=== PATIENT | male | born 1965 | race Caucasian/White ===

== ENCOUNTER 2017-01-21 11:04 | Emergency (ER) | payer BC ==
[2017-01-21 11:10] VITALS: BP 159/92; BMI 31.1
--- NOTE | 2017-01-21 11:45 | DR.ABDMALE ---
HPI - Time seen Time seen: 11:40 - PCP Primary Care Physician: CORRIE - HPI comment HPI Comment: HISTORY BELOW. - Complaint Chief Complaint Doctors Comments: LOWER ABDOMINAL AND LOWER BACK PAIN WITH NAUSEA. EVALUATED IN [facility] BUT NOT IMPROVING. GETTING WORSE. Chief Complaint:: PATIENT HAS BEEN HAVING LEFT LOWER ABD PAIN SINCE 01/06/17. WAS SEEN IN [place] [facility]. PATIENT WAS BROUGHT HER BY . - Reviewed Nurses Notes Review: Yes - Mode of arrival Mode of Arrival: Wheelchair - Timing Onset of Chief Complaint: 01/06/17 Came on: Suddenly - Duration Duration: Constant Duration: Days - Location Location: RLQ, LLQ, Suprapubic - Severity Severity: Moderate - Quality Quality: Sharp - Context Onset: Suddenly History of: None - Modifying factors Worsening Factors: Nothing Improving Factors: Nothing - Associated signs and symptoms Associated Signs and Symptoms: Nausea PMH - PMH Past Medical History: No Past Surgical History: No - Family History History of Family Medical Conditions: No - Social History Does patient currently use any type of tobacco product: Yes Have you used tobacco products in the last 12 months: Yes Type of Tobacco Use: Smokeless How many years tobacco product used: 20 Does any household member use tobacco: No Alcohol Use: DAILY Do you use any recreational Drugs:: No Lives With: Family Lives Where: Home - infectious screening In the last 2 months have you had wt loss of >10#?: NO Have you had fever, night sweats or hemotysis?: No Have you traveled outside the country in the last 6 months?: No Isolation: Standard ROS - Review of Systems Constitutional: No Symptoms Reported Eyes: No Symptoms Reported ENTM: No Symptoms Reported Respiratoy: No Symptoms Reported Cardiovascular: No Symptoms Reported Gastrointestinal/Abdominal: Abdominal Pain, Nausea Genitourinary: No Symptoms Reported. negative: Dysuria, Frequency, Hematuria Neurological: No Symptoms Reported Musculoskeletal: Back Pain (LOWER BACK) Integumentary: No Symptoms Reported Hematologic/Lymphatic: No Symptoms Reported Endocrine: No Symptoms Reported All Other Systems: Reviewed and Negative PE - Vital Signs Vital Signs: Temp Pulse Resp BP Pulse Ox 01/21/17 11:07 98.6 F 69 16 159/92 100 - General Limitations: No Limitations General Appearance: Alert - Head Head Exam: Normal Inspection - Eyes Eye exam: Normal Appearance - ENT ENT Exam: Normal External Ear Exam - Neck Neck Exam: Normal Inspection - Chest Chest Inspection: Symmetric Chest Wall Rise - Respiratory Respiratory Exam: Normal Lung Sounds Bilat Respiratory Exam: Bilateral Clear to Auscultation - Cardiovascular Cardiovascular Exam: Regular Rate, Normal Rhythm, Normal Heart Sounds - Abdominal Exam Abdominal Exam: Normal Bowel Sounds, Soft, Tenderness Abdominal Tenderness: RLQ, LLQ, Suprapubic - Rectal Rectal Exam: Deferred - Back Back Exam: Normal Inspection - Extremeties Extremities Exam: Normal Inspection - Exam: Male: Deferred - Neurologic Neurological Exam: Alert, Oriented X3 - Psychiatric Psychiatric Exam: Normal Affect, Normal Mood - Skin Skin Exam: Normal Color MDM - Differential Diagnosis Differential Diagnosis: Cholcystitis, Cholelethiasis, Diverticular disease, Gastritus/PUD, Pancreatitis, Urinary tract infection, Urolithiasis Course - Treatment Treatment: SEE ORDERS. - Education/Counseling Education/Counseling: Patient, Family, Education Educated On: Treatment, Diagnosis, Needs for Follow Up ROR - Labs Reviewed Laboratory Results Reviewed?: Yes Result Diagrams: 01/21/17 11:50 01/21/17 11:50 Laboratory: WBC 7.8 X10^3/uL (3.6-10.0) 01/21/17 11:50 RBC 4.81 X10^6/uL (4.7-6.0) 01/21/17 11:50 Hgb 15.6 g/dL (13.5-18.0) 01/21/17 11:50 Hct 43.7 % (42.0-54.0) 01/21/17 11:50 MCV 90.8 fL (80.0-100.0) 01/21/17 11:50 MCH 32.5 pg (27.0-34.0) 01/21/17 11:50 MCHC 35.8 g/dL (33.0-35.0) H 01/21/17 11:50 RDW 13.0 % (11.6-16.5) 01/21/17 11:50 Plt Count 187 X10^3/uL (150.0-450.0) 01/21/17 11:50 MPV 8.1 fL (7.4-11.0) 01/21/17 11:50 Neut % 82.4 % (42.0-75.0) H 01/21/17 11:50 Lymph % 9.8 % (21.0-51.0) L 01/21/17 11:50 [place] % 5.0 % (0.0-13.0) 01/21/17 11:50 Eos % 1.5 % (0.9-2.9) 01/21/17 11:50 Baso % 1.3 % (0.2-1.0) H 01/21/17 11:50 Neut # 6.5 x10^3/uL (2.2-4.8) H 01/21/17 11:50 Lymph # 0.8 X10^3/uL (1.3-2.9) L 01/21/17 11:50 [place] # 0.4 x10^3/uL (0.3-0.8) 01/21/17 11:50 Eos # 0.1 x10^3/uL (0.0-0.2) 01/21/17 11:50 Baso # 0.1 X10^3/uL (0.0-0.1) 01/21/17 11:50 Absolute Nucleated RBC 0.0 /100WBC 01/21/17 11:50 Sodium 141 mmol/L (136-145) 01/21/17 11:50 Corrected Sodium TNP 01/21/17 11:50 Potassium 4.1 mmol/L (3.5-5.1) 01/21/17 11:50 Chloride 108 mmol/L (98-107) H 01/21/17 11:50 Carbon Dioxide 26.3 mmol/L (21-32) 01/21/17 11:50 BUN 10 mg/dL (7-18) 01/21/17 11:50 Creatinine 0.97 mg/dL (0.70-1.30) 01/21/17 11:50 Est GFR (MDRD) Af Amer > 60 (>60) 01/21/17 11:50 Est GFR (MDRD) Non-Af > 60 (>60) 01/21/17 11:50 Glucose 94 mg/dL (65-99) 01/21/17 11:50 Calcium 8.7 mg/dL (8.5-10.1) 01/21/17 11:50 Corrected Calcium TNP 01/21/17 11:50 Total Bilirubin 1.30 mg/dL (0.2-1.0) H 01/21/17 11:50 AST 43 Units/L (15-37) H 01/21/17 11:50 ALT 108 Units/L (12-78) H 01/21/17 11:50 Alkaline Phosphatase 77 Units/L (46-116) 01/21/17 11:50 Total Protein 6.9 g/dL (6.4-8.2) 01/21/17 11:50 Albumin 4.0 g/dL (3.4-5.0) 01/21/17 11:50 Globulin 2.9 g/dL (2.5-4.5) 01/21/17 11:50 Albumin/Globulin Ratio 1.4 Ratio (1.1-2.1) 01/21/17 11:50 Amylase 36 Units/L (25-115) 01/21/17 11:50 Lipase 171 Units/L (73-393) 01/21/17 11:50 Specimen Type Clean catch urine 01/21/17 12:19 Urine Color Dark yellow (YELLOW) 01/21/17 12:19 Urine Appearance Cloudy (CLEAR) 01/21/17 12:19 Urine pH 6.0 (5.0 - 8.0) 01/21/17 12:19 Ur Specific [place] 1.015 (1.000-1.030) 01/21/17 12:19 Urine Protein 2+ (NEGATIVE) 01/21/17 12:19 Urine Glucose (UA) Negative (NEGATIVE) 01/21/17 12:19 Urine Ketones Negative (NEGATIVE) 01/21/17 12:19 Urine Occult Blood 5+ (NEGATIVE) 01/21/17 12:19 Urine Nitrite Negative (NEGATIVE) 01/21/17 12:19 Urine Bilirubin Negative (NEGATIVE) 01/21/17 12:19 Urine Urobilinogen Normal (NORMAL) 01/21/17 12:19 Ur Leukocyte Esterase 1+ (NEGATIVE) 01/21/17 12:19 Urine RBC Tntc /HPF (NEGATIVE) 01/21/17 12:19 Urine WBC 0 - 2 /HPF (NEGATIVE) 01/21/17 12:19 Ur Squamous Epith Cells Rare /HPF (NEGATIVE) 01/21/17 12:19 Amorphous Sediment 1+ /HPF (NEGATIVE) 01/21/17 12:19 Urine Bacteria Negative /HPF (NEGATIVE) 01/21/17 12:19 Ur Culture Indicated? No/not indicated 01/21/17 12:19 H. pylori IgG Antibody Negative (NEGATIVE) 01/21/17 11:50 - XRAY XRAY Interpreted by: Radiologist XRAY Findings: REPORT DISCUSS WITH PATIENT AND FAMILY. - Diagnosis Discharge Problem: Left ureteral calculus Abdominal pain Qualifiers: Abdominal location: generalized Qualified Code(s): R10.84 - Generalized abdominal pain Cholelithiasis Qualifiers: Cholelithiasis location: gallbladder Cholecystitis presence: without cholecystitis Biliary obstruction: without biliary obstruction Qualified Code(s) : K80.20 - Calculus of gallbladder without cholecystitis without obstruction - Discharge Plan Disposition: HOME, SELF-CARE Condition: Stable Prescriptions: Hydrocodone/Acet Elixir [LORTAB ELIXIR 7.5-325 MG/15 ML *] 7.5 ml PO Q6H #15 ml Ketorolac Tromethamine [Toradol Tab] 10 mg PO Q8H PRN #20 tab PRN Reason: Pain Tamsulosin HCl [Flomax] 0.4 mg PO DAILY #10 cap - Follow ups/Referrals Follow ups/Referrals: NFD,None [Primary Care Provider] - 3 days - Instructions Instructions: Cholelithiasis, Kidney Stones, [id number], Abdominal Pain, Adult, [id number] Additional Instructions: RETURN TO ED IF WORSE. FOLLOW UP WITH UROLOGIST TUESDAY.
[2017-01-21 11:59] LABS: EOSINOPHILS # (AUTO) 0.1 x10^3/uL (0.0-0.2); HEMOGLOBIN 15.6 g/dL (13.5-18.0); LYMPHOCYTES # (AUTO) 0.8 X10^3/uL (1.3-2.9); MEAN CORPUSCULAR HGB CONC 35.8 g/dL (33.0-35.0); MONOCYTES # (AUTO) 0.4 x10^3/uL (0.3-0.8)
[2017-01-21 12:11] LABS: ALANINE AMINOTRANSFERASE 108 Units/L (12-78); ALKALINE PHOSPHATASE 77 Units/L (46-116); AMYLASE 36 Units/L (25-115); ASPARTATE AMINO TRANSFERASE 43 Units/L (15-37); BLOOD UREA NITROGEN 10 mg/dL (7-18); CALCIUM 8.7 mg/dL (8.5-10.1); CARBON DIOXIDE 26.3 mmol/L (21-32); CHLORIDE 108 mmol/L (98-107); CREATININE 0.97 mg/dL (0.70-1.30); LIPASE 171 Units/L (73-393); SODIUM 141 mmol/L (136-145); TOTAL PROTEIN 6.9 g/dL (6.4-8.2); eGFR BLACK RACES > 60 (>60); eGFR NON BLACK RACES > 60 (>60)
[2017-01-21 12:15] LABS: BASOPHILS # (AUTO) 0.1 X10^3/uL (0.0-0.1); BASOPHILS % (AUTO) 1.3 % (0.2-1.0); EOSINOPHILS % (AUTO) 1.5 % (0.9-2.9); HEMATOCRIT 43.7 % (42.0-54.0); LYMPHOCYTES % (AUTO) 9.8 % (21.0-51.0); MEAN CORPUSCULAR HEMOGLOBIN 32.5 pg (27.0-34.0); MEAN CORPUSCULAR VOLUME 90.8 fL (80.0-100.0); MEAN PLATELET VOLUME 8.1 fL (7.4-11.0); NEUTROPHILS # (AUTO) 6.5 x10^3/uL (2.2-4.8); NEUTROPHILS % (AUTO) 82.4 % (42.0-75.0); PLATELET COUNT 187 X10^3/uL (150.0-450.0); RED BLOOD COUNT 4.81 X10^6/uL (4.7-6.0); WHITE BLOOD COUNT 7.8 X10^3/uL (3.6-10.0)
--- NOTE | 2017-01-21 12:22 | CT ---
HISTORY: Abdominal pain, prior history of renal stone Study: CT abdomen and pelvis without contrast Comparison: None Technique: Multiple axial images of the abdomen and pelvis were obtained from the lung bases to the pubic symphy sis without the administration of IV contrast. Findings: Atelectasis is seen within the visualized lungs. The liver, spleen, pancreas, and adrenals are grossl y unremarkable in appearance given the limitations of this noncontrast exam. A right renal cyst is no jerrell. An approximate 3 mm stone is noted within the left kidney. An approximate 3 mm stone is also see n within the proximal left ureter resulting in moderate left-sided hydronephrosis and proximal left h ydroureter. Evaluation of the stomach, small bowel, and colon is limited without oral contrast. The a ppendix is partially air-filled and otherwise grossly unremarkable. Cholelithiasis is noted. The urin sina bladder is unremarkable. IMPRESSION: 1. 3 mm stone within the proximal left ureter resulting in moderate left-sided hydronephrosis and pro ximal left hydroureter. 2. Left renal stone as noted above. 3. Cholelithiasis which may be further evaluated with ultrasound as clinically indicated. Reported By:
[2017-01-21 12:39] LABS: BILIRUBIN,URINE NEGATIVE (NEGATIVE); BLOOD/HEMOGLOBIN,URINE 5+ (NEGATIVE); GLUCOSE, URINE NEGATIVE (NEGATIVE); KETONES,URINE NEGATIVE (NEGATIVE); LEUKOCYTE ESTERASE ,URINE 1+ (NEGATIVE); NITRITES,URINE NEGATIVE (NEGATIVE); PROTEIN,URINE 2+ (NEGATIVE); UROBILINOGEN,URINE NORMAL (NORMAL)
[2017-01-21 12:52] LABS: APPEARANCE,URINE CLOUDY (CLEAR); COLOR,URINE DARK YELLOW (YELLOW)
[2017-01-21 12:57] LABS: AMORPHOUS SEDIMENT,UR 1+ /HPF (NEGATIVE); BACTERIA,URINE NEGATIVE /HPF (NEGATIVE); RBC,URINE TNTC /HPF (NEGATIVE); SQUAMOUS EPITHELIAL CELL,UR RARE /HPF (NEGATIVE)
== END 2017-01-21 13:15 | disposition home or self-care (01) ==
LOC: ER 11:04
DX: N20.1 Calculus of ureter (principal); K80.20 Calculus of gallbladder without cholecystitis without obstruction; R10.84 Generalized abdominal pain
CPT/HCPCS: 36415; 74176; 80053; 81001; 82150; 83690; 85025; 86677; 99282; 99283

== ENCOUNTER 2022-05-25 15:13 | Inpatient (IN) ==
[2022-05-25] MEDS ORDERED: LOPRESSOR INJ 5 MG AMP IVP ONE (17:01)
--- NOTE | 2022-05-25 17:19 | EKG ---
Test Reason : NEW ONSET A-FIB Blood Pressure : */* mmHG Vent. Rate : 156 BPM Atrial Rate : * BPM P-R Int : * ms QRS Dur : 86 ms QT Int : 314 ms P-R-T Axes : * 22 -16 degrees QTc Int : 506 ms Atrial fibrillation with rapid ventricular response Abnormal ECG No previous ECGs available Confirmed by Oliver Nassar ([id number]) on 05/26/2022 10:55:19 AM Referred By: Confirmed By: Oliver Nassar
[2022-05-25 17:34] LABS: BASOPHILS % (AUTO) 0.5 % (0.2-1.0); EOSINOPHILS # (AUTO) 0.2 x10^3/uL (0.0-0.2); EOSINOPHILS % (AUTO) 2.3 % (0.9-2.9); HEMATOCRIT 45.8 % (42.0-54.0); HEMOGLOBIN 15.7 g/dL (13.5-18.0); LYMPHOCYTES # (AUTO) 1.1 X10^3/uL (1.3-2.9); MEAN CORPUSCULAR HEMOGLOBIN 32.7 pg (27.0-34.0); MEAN CORPUSCULAR HGB CONC 34.3 g/dL (33.0-35.0); MEAN CORPUSCULAR VOLUME 95.5 fL (80.0-100.0); MEAN PLATELET VOLUME 8.3 fL (7.4-11.0); MONOCYTES # (AUTO) 0.5 x10^3/uL (0.3-0.8); MONOCYTES % (AUTO) 7.4 % (0.0-13.0); NEUTROPHILS % (AUTO) 73.8 % (42.0-75.0); RED CELL DISTRIBUTION WIDTH 12.9 % (11.6-16.5); WHITE BLOOD COUNT 6.7 X10^3/uL (3.6-10.0)
[2022-05-25] MEDS: LOPRESSOR TAB 25 MG PO SCH ×2 (17:39→20:27)
[2022-05-25] MEDS: LANOXIN INJ IVP SCH ×2 (17:40→20:46)
[2022-05-25 17:48] LABS: ALANINE AMINOTRANSFERASE 83 Units/L (12-78); ALBUMIN 4.2 g/dL (3.4-5.0); ALKALINE PHOSPHATASE 84 Units/L (46-116); ASPARTATE AMINO TRANSFERASE 46 Units/L (15-37); BLOOD UREA NITROGEN 19 mg/dL (7-18); CARBON DIOXIDE 27.7 mmol/L (21-32); CHLORIDE 104 mmol/L (98-107); CREATININE 0.82 mg/dL (0.70-1.30); SODIUM 141 mmol/L (136-145); TOTAL PROTEIN 7.5 g/dL (6.4-8.2); eGFR NON BLACK RACES > 60 (>60)
[2022-05-25 18:41] VITALS: BMI 28.3
[2022-05-25] MEDS ORDERED: HEPARIN SODIUM IN D5W 25,000 UNITS/500 ML BAG IV PRN (18:53)
[2022-05-25 19:18] LABS: BILIRUBIN,URINE NEGATIVE (NEGATIVE); BLOOD/HEMOGLOBIN,URINE 5+ (NEGATIVE); GLUCOSE, URINE NEGATIVE (NEGATIVE); KETONES,URINE NEGATIVE (NEGATIVE); LEUKOCYTE ESTERASE ,URINE 1+ (NEGATIVE); NITRITES,URINE NEGATIVE (NEGATIVE); PROTEIN,URINE 2+ (NEGATIVE); UROBILINOGEN,URINE NORMAL (NORMAL)
[2022-05-25 19:20] LABS: INR 1.09 (0.8-1.3)
[2022-05-25 19:21] LABS: APPEARANCE,URINE SLIGHTLY HAZY (CLEAR); COLOR,URINE YELLOW (YELLOW)
[2022-05-25 19:22] LABS: BACTERIA,URINE TRACE /HPF (NEGATIVE); RBC,URINE 30-50 /HPF (0-3); SQUAMOUS EPITHELIAL CELL,UR RARE /HPF (NEGATIVE)
[2022-05-25] MEDS: NORVASC TAB 5 MG PO SCH (19:34)
[2022-05-25] MEDS ORDERED: HEPARIN SODIUM INJ 5000 UNITS IVP ONE (19:44)
[2022-05-25] MEDS ORDERED: HEPARIN SODIUM INJ 5000 UNITS ONE (19:50)
--- NOTE | 2022-05-25 20:30 | EKG ---
Test Reason : NEW ONSET A-FIB Blood Pressure : */* mmHG Vent. Rate : 76 BPM Atrial Rate : * BPM P-R Int : * ms QRS Dur : 98 ms QT Int : 404 ms P-R-T Axes : * 12 -5 degrees QTc Int : 454 ms Atrial fibrillation Nonspecific T wave abnormality Abnormal ECG When compared with ECG of 25-MAY-2022 17:11, (Unconfirmed) Vent. rate has decreased BY 80 BPM Nonspecific T wave abnormality now evident in Anterior leads Confirmed by Oliver Nassar ([id number]) on 05/26/2022 10:53:44 AM Referred By: Confirmed By: Oliver Nassar
[2022-05-25] MEDS ORDERED: DOPAMINE IV PREMIX 400 MG/250 ML 400 MG/250 ML BAG IV PRN (21:55)
--- NOTE | 2022-05-26 01:28 | EKG ---
Test Reason : NEW ONEST A-FIB Blood Pressure : */* mmHG Vent. Rate : 67 BPM Atrial Rate : * BPM P-R Int : * ms QRS Dur : 102 ms QT Int : 416 ms P-R-T Axes : * 9 -31 degrees QTc Int : 439 ms Atrial fibrillation T wave abnormality, consider anterior ischemia Abnormal ECG When compared with ECG of 25-MAY-2022 20:23, (Unconfirmed) T wave inversion now evident in Anterior leads Confirmed by Oliver Nassar ([id number]) on 05/26/2022 10:53:06 AM Referred By: Confirmed By: Oliver Nassar
[2022-05-26 02:27] LABS: BASOPHILS % (AUTO) 0.7 % (0.2-1.0); EOSINOPHILS # (AUTO) 0.3 x10^3/uL (0.0-0.2); EOSINOPHILS % (AUTO) 4.3 % (0.9-2.9); HEMATOCRIT 43.9 % (42.0-54.0); HEMOGLOBIN 15.3 g/dL (13.5-18.0); LYMPHOCYTES # (AUTO) 1.7 X10^3/uL (1.3-2.9); LYMPHOCYTES % (AUTO) 25.1 % (21.0-51.0); MEAN CORPUSCULAR HEMOGLOBIN 33.4 pg (27.0-34.0); MEAN CORPUSCULAR HGB CONC 34.9 g/dL (33.0-35.0); MEAN CORPUSCULAR VOLUME 95.6 fL (80.0-100.0); MEAN PLATELET VOLUME 8.3 fL (7.4-11.0); MONOCYTES # (AUTO) 0.6 x10^3/uL (0.3-0.8); MONOCYTES % (AUTO) 8.3 % (0.0-13.0); NEUTROPHILS # (AUTO) 4.1 x10^3/uL (2.2-4.8); NEUTROPHILS % (AUTO) 61.6 % (42.0-75.0); RED CELL DISTRIBUTION WIDTH 13.1 % (11.6-16.5); WHITE BLOOD COUNT 6.7 X10^3/uL (3.6-10.0)
[2022-05-26 02:35] LABS: ALANINE AMINOTRANSFERASE 72 Units/L (12-78); ALBUMIN 3.8 g/dL (3.4-5.0); ALKALINE PHOSPHATASE 63 Units/L (46-116); ASPARTATE AMINO TRANSFERASE 42 Units/L (15-37); BLOOD UREA NITROGEN 15 mg/dL (7-18); CALCIUM 8.4 mg/dL (8.5-10.1); CARBON DIOXIDE 27.6 mmol/L (21-32); CHLORIDE 103 mmol/L (98-107); CREATININE 0.66 mg/dL (0.70-1.30); SODIUM 140 mmol/L (136-145); TOTAL PROTEIN 6.9 g/dL (6.4-8.2); eGFR NON BLACK RACES > 60 (>60)
[2022-05-26] MEDS ORDERED: HEPARIN SODIUM INJ 5000 UNITS IVP ONE (02:55)
[2022-05-26] MEDS ORDERED: HEPARIN SODIUM INJ 5000 UNITS ONE (02:59)
[2022-05-26] MEDS ORDERED: K-DUR TAB 20 MEQ PO PRN (05:08)
[2022-05-26] MEDS ORDERED: KLOR-CON PO PRN (05:08)
[2022-05-26] MEDS ORDERED: K-DUR TAB 20 MEQ PO ONE (05:54)
[2022-05-26] MEDS ORDERED: MAGNESIUM SULFATE 1 GRAM/100 mL PREMIX 1 G/100 ML BAG IV ONE (05:55)
[2022-05-26] MEDS: MAGNESIUM SULFATE 1 GRAM/100 mL PREMIX 1 G/100 ML BAG IV PRN (06:02)
--- NOTE | 2022-05-26 06:05 | RAD ---
HISTORYNEW ONSET A-FIBSTUDYCHEST, 1 VIEWCOMPARISONNoneTECHNIQUEPA or AP view of the chestFINDINGSThe cardiac and mediastinal contours are within normal limits. The lungs are clear without focal consolidation or segmental collapse. No pleural effusion or pneumothorax.IMPRESSIONNo acute pulmonary process.Electronically signed by: Veto Choudhary (May 26, 2022 06:03:50)
--- NOTE | 2022-05-26 07:53 | DR.H&P ---
H&P - History & Physical for Day of: H&P Date: 05/25/22 - Chief Complaint Chief Complaint: new onset atrial fibrillation with RVR - History of Present Illness History of Present Illness: Patient is a 57 year old male that was a direct admit from our primary office with new onset a fib with RVR. Patient presented to the office for routine visit with complaints of fluctuation in BP. Reports that he had been feeling his heart skip a beat but no chest pain. Denied swelling or shortness of breath. Patient does report a heart cath several years ago that was WNL. Does report taking his Losartan daily. Bilirubin was also noted to be elevated and is noted to drink "two strong glasses of liquor at night". 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 Patient will be admitted for further evaluation. - Past Medical History Past Medical History: Kidney Stones - Family History Family Medical History: Diabetes Mellitus, Coronary Artery Disease - Social History Does patient currently use any type of tobacco product: Yes Have you used tobacco products in the last 12 months: Yes Type of Tobacco Use: Smokeless Does any household member use tobacco: No Alcohol Use: DAILY Drug Use: None - Medications Home Medications: No Known Drug Allergies Allergy (Verified 01/21/17 11:46) CONTINUE taking the following medications losartan 50 mg tablet 1 tab PO QDAY 05/25/22 [History] omega-3 acid ethyl esters 1 gram capsule 2 cap PO BID 05/25/22 [History] - Review of Systems Constitutional: See HPI Eyes: See HPI ENT: See HPI Respiratory: See HPI Cardiovascular: See HPI, Palpitations Gastrointestinal: See HPI Genitourinary: See HPI Musculoskeletal: See HPI Skin: See HPI Neurological: See HPI - Physical Exam Vital Signs: Temperature 97.7 F Pulse Rate 61 Respiratory Rate 12 Blood Pressure 133/87 O2 Sat by Pulse Oximetry 96 Oriented: Normal Eyes: Normal Ear: Normal Nose: Normal Throat: Normal Respiratory: Clear Throughout Cardiovascular: Irregular : Normal Auscultation: Bowel Sounds: Normal Palpation: Normal Tenderness: Normal Skin: Normal Musculoskeletal: Normal Psychiatric: Normal Mood Description: Calm Affect: Normal Speech Pattern: Appropriate - Assessment/Plan (1) A-fib Status: Acute Plan: See orders for further details (2) Serum total bilirubin elevated Status: Acute Plan: See orders for further details - Review H&P Reviewed: Yes Patient was examined?: Yes - Allergies Allergies/Adverse Reactions: Allergies Allergy/AdvReac Type Severity Reaction Status Date / Time No Known Drug Allergies Allergy Verified 01/21/17 11:46
[2022-05-26] MEDS ORDERED: LOPRESSOR TAB 25 MG PO SCH (09:00)
[2022-05-26 09:35] LABS: BILIRUBIN,DIRECT 0.4 mg/dL (0-0.2)
[2022-05-26] MEDS: LOPRESSOR TAB 25 MG PO SCH ×2 (11:08→21:16)
[2022-05-26] MEDS: NORVASC TAB 5 MG PO SCH (11:09)
[2022-05-26 11:10] LABS: INR 1.09 (0.8-1.3)
[2022-05-26] MEDS ORDERED: ZOFRAN INJ 4 MG VIAL IVP ONE (11:15)
[2022-05-26] MEDS ORDERED: PEPCID 20 MG VIAL IVP ONE (11:15)
[2022-05-26] MEDS ORDERED: REGLAN INJ 10 MG VIAL IVP ONE (11:17)
[2022-05-26] MEDS ORDERED: ZOFRAN INJ 4 MG VIAL ONE (11:51)
[2022-05-26] MEDS ORDERED: REGLAN INJ 10 MG VIAL ONE (11:51)
[2022-05-26] MEDS ORDERED: PEPCID 20 MG VIAL ONE (11:52)
[2022-05-26] MEDS ORDERED: NS 50 ML IV 50 ML IV ONE (11:52)
[2022-05-26] MEDS ORDERED: XYLOCAINE 2 % (PLAIN) ONE (12:15)
[2022-05-26] MEDS ORDERED: DIPRIVAN VIAL 20 ML ONE (12:15)
[2022-05-26] MEDS ORDERED: LR 1,000 ML IV 1,000 ML IV ONE (12:24)
[2022-05-26] MEDS ORDERED: VERSED ONE (12:34)
[2022-05-26] MEDS ORDERED: ELIQUIS ONE (12:57)
[2022-05-26] MEDS: ELIQUIS PO SCH ×2 (13:00→21:15)
--- NOTE | 2022-05-26 13:00 | EKG ---
Test Reason : cariodversion Blood Pressure : */* mmHG Vent. Rate : 77 BPM Atrial Rate : 77 BPM P-R Int : 170 ms QRS Dur : 92 ms QT Int : 428 ms P-R-T Axes : 63 15 2 degrees QTc Int : 484 ms Normal sinus rhythm Cannot rule out Anterior infarct , age undetermined Abnormal ECG When compared with ECG of 26-MAY-2022 01:20, Sinus rhythm has replaced Atrial fibrillation Minimal criteria for Anterior infarct are now present T wave inversion no longer evident in Anterior leads Confirmed by Oliver Nassar ([id number]) on 05/26/2022 6:20:29 PM Referred By: Confirmed By: Oliver Nassar
[2022-05-27 05:09] LABS: BASOPHILS % (AUTO) 0.5 % (0.2-1.0); EOSINOPHILS # (AUTO) 0.2 x10^3/uL (0.0-0.2); EOSINOPHILS % (AUTO) 3.2 % (0.9-2.9); HEMATOCRIT 40.8 % (42.0-54.0); HEMOGLOBIN 14.1 g/dL (13.5-18.0); LYMPHOCYTES % (AUTO) 17.9 % (21.0-51.0); MEAN CORPUSCULAR HEMOGLOBIN 33.2 pg (27.0-34.0); MEAN CORPUSCULAR HGB CONC 34.6 g/dL (33.0-35.0); MEAN PLATELET VOLUME 8.5 fL (7.4-11.0); MONOCYTES # (AUTO) 0.5 x10^3/uL (0.3-0.8); MONOCYTES % (AUTO) 8.4 % (0.0-13.0); NEUTROPHILS # (AUTO) 4.1 x10^3/uL (2.2-4.8); RED BLOOD COUNT 4.25 X10^6/uL (4.7-6.0); RED CELL DISTRIBUTION WIDTH 13.1 % (11.6-16.5); WHITE BLOOD COUNT 5.9 X10^3/uL (3.6-10.0)
[2022-05-27 05:31] LABS: ALANINE AMINOTRANSFERASE 78 Units/L (12-78); ALBUMIN 3.5 g/dL (3.4-5.0); ALKALINE PHOSPHATASE 56 Units/L (46-116); ASPARTATE AMINO TRANSFERASE 43 Units/L (15-37); BLOOD UREA NITROGEN 17 mg/dL (7-18); CALCIUM 8.2 mg/dL (8.5-10.1); CHLORIDE 106 mmol/L (98-107); CREATININE 0.77 mg/dL (0.70-1.30); MAGNESIUM 1.9 mg/dL (2.0-2.9); SODIUM 142 mmol/L (136-145); TOTAL PROTEIN 6.3 g/dL (6.4-8.2); eGFR NON BLACK RACES > 60 (>60)
[2022-05-27] MEDS: NORVASC TAB 5 MG PO SCH (08:57)
[2022-05-27] MEDS: MAGNESIUM SULFATE 1 GRAM/100 mL PREMIX 1 G/100 ML BAG IV PRN ×2 (09:00→10:07)
[2022-05-27] MEDS: LOPRESSOR TAB 25 MG PO SCH (09:00)
[2022-05-27 11:45] VITALS: BP 129/76
== END 2022-05-27 11:10 | disposition home or self-care (01) | DRG 310 ==
LOC: ICU → OBSVTOIN 16:24
PROVIDERS: ADMIT Internal Medicine; ATTEND Internal Medicine